=== PATIENT | female | born 1980 ===

== ENCOUNTER 2017-11-10 02:42 | Inpatient (IN) ==
[2017-11-10] MEDS ORDERED: Acetaminophen 325 MG TABLET PO PRN (06:29)
[2017-11-10] MEDS ORDERED: Naloxone 0.4 MG/ML INJ IVP PRN (06:29)
[2017-11-10] MEDS ORDERED: *HR* HYDROcodone/Acet 5/325 mg TABLET PO PRN (06:29)
[2017-11-10] MEDS ORDERED: D5% in Water 1,000 ML IVC PRN (06:35)
[2017-11-10] MEDS ORDERED: *HR* Dextrose 50 % in Water (Syg) 50 ML SYRINGE IVP PRN (06:35)
[2017-11-10] MEDS ORDERED: Dextrose Gel 15 GM/37.5 ML TUBE PO PRN ×2 (06:35)
--- NOTE | 2017-11-10 06:46 | Internal Med History&Physical ---
Date of Encounter: 11/10/17 Time of Encounter: 05:50 Internal Medicine - H&P: HPI Chief complaint: Right index finger pain and swelling Admitted From: Home Plans for Post Hospital Care: Home History of present illness: Ms. Olea is a 37 year old female transferred from [facility] emergency room for right sided index finger swelling and pain. Past medical history is significant for diabetes and hypertension. Patient said that since Monday she started to have right index finger pain and swelling. Patient denies injury. Patient saw PCP and had I and D by PCP. Patient was prescribed Bactrim by mouth by PCP. However, her symptoms is getting worse even on by mouth antibiotics. Patient went to [facility] emergency room for further management. Patient denies fever. Patient has no other symptoms except the finger pain. Patient was given vancomycin in [facility] and transferred to our hospital for further management. Lab results in [facility]: CBC 15.8/13.7/41.3/402, BMP 136/4.5/102/23/12.7/1.0/140. Lactate 1.7, ESR 29, CRP 3.4 Past Med Surg Social Fam HX - Past Medical History Medical history: diabetes, hypertension Psychiatric history: anxiety, depression - Past Surgical History Surgical History: other (Tubal ligation) Additional surgical history: tubal - Social History Smoking Status: Current every day smoker Packs per day: 1 Alcohol use: none Drug use: none - Family History Mother Living Status: Still Living Hx Family Cardiac Disorders: Yes (HTN) Father Living Status: Still Living Hx Family Cancer: Yes (prostate) Hx Family Endocrine Disorder: Yes (DM) Internal Medicine - H&P: Meds Buspirone HCl [Buspar] 10 mg PO TID 11/10/17 [History] Cholecalciferol (D-3) [Vitamin D] 10,000 unit PO Q1W 11/10/17 [History] FLUoxetine HCl [PROzac] 20 mg PO DAILY 11/10/17 [History] Glimepiride [Amaryl] 4 mg PO DAILY 11/10/17 [History] Lisinopril [Zestril] 10 mg PO DAILY 11/10/17 [History] Metformin HCl [Glucophage] 1,000 mg PO BID 11/10/17 [History] 3 Allergy/AdvReac Type Severity Reaction Status Date / Time No Known Allergies Allergy Verified 11/10/17 05:16 All Systems PM: A 10-system review of systems was performed and is negative for pertinent findings except as documented above in the HPI. - Constitutional Vitals: Temp Pulse Resp BP Pulse Ox 97.7 F 84 16 128/84 95 11/10/17 05:02 11/10/17 05:02 11/10/17 05:02 11/10/17 05:02 11/10/17 05:02 General appearance: Present: A&O X 3, no acute distress, answers questions appropriately - Head Head exam: Present: atraumatic, normocephalic - Eye Eye exam: Present: PERRL, conjuntiva pink, sclera anicteric Pupils: Present: PERRL - Neck Neck exam general surgery: Present: supple, trachea midline. Absent: lymphadenopathy - Respiratory Respiratory exam: Present: CTAB. Absent: accessory muscle use, rales, rhonchi, wheezes - Cardiovascular Cardiovascular exam: Present: RRR, +S1, +S2. Absent: diastolic murmur, gallop, rubs, systolic murmur - GI/Abdominal GI/Abdominal exam: Present: normal bowel sounds, soft, no peritoneal signs. Absent: distended, tenderness - Extremities Exam Extremities exam: Present: warm, radial pulses palpable and symmetrical. Absent : calf tenderness, cyanotic, pedal edema Additional comments: Right index finger pain and the swelling with skin redness - Neurological Exam Neurological exam: Present: CN II-XII intact, oriented X3, no focal deficits. Absent: pronater drift, facial droop, speech deficit - Skin Skin exam: Present: dry, intact - Assessment and plan (1) Cellulitis of right index finger Current Visit: Yes Status: Acute Assessment and plan: Place patient on Vanco and Zosyn at this point. Check blood culture. Check MR right hand to rule out osteomyelitis. Consider orthopedic consult if symptoms persist. 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 insulin use: without custodial use Diabetes mellitus complication status: without complication Qualified Code(s): E11.9 - Type 2 diabetes mellitus without complications (3) Hypertension Current Visit: Yes Status: Acute Assessment and plan: Continue home medication list and problem 10 mg by mouth daily Qualifiers: Hypertension type: essential hypertension Qualified Code(s): I10 - Essential (primary) hypertension (4) DVT prophylaxis Current Visit: Yes Status: Acute Assessment and plan: Heparin subcutaneously - Time Spent With Patient Total time spent is greater than 50% in coordination of care (as documented) at patient's floor/unit and/or counseling patient: 40 minutes Greater than 35 minutes
[2017-11-10] MEDS ORDERED: Vancomycin 1 EACH in 0.9 % Sodium Chloride 250 ML IVPB SCH (07:00)
[2017-11-10 07:05] LABS: Basophils # 0.1 K/mcL (0.0-0.2); Basophils % 0.7 %; Eosinophils # 0.3 K/mcL (0.0-0.6); Eosinophils % 2.2 %; Hemoglobin 13.7 g/dL (11.5-15.4); Immature Granulocytes % 0.3 % (0-4); Lymphocytes # 3.1 K/mcL (0.6-4.6); Lymphocytes % 21.1 %; Mean Corpuscular HGB Conc 32.6 g/dL (31.6-35.5); Mean Corpuscular Hemoglobin 28.3 pg (28.0-33.3); Mean Corpuscular Volume 86.8 fL (83.0-100.0); Mean Platelet Volume 10.4 fL (9.4-12.4); Monocytes # 0.6 K/mcL (0.0-1.3); Monocytes % 4.2 %; Neutrophils # 10.3 K/mcL (1.6-8.9); Platelet Count 352 K/mcL (140-400); Red Blood Count 4.84 M/mcL (3.82-4.97); Red Cell Distribution Width 13.3 % (11.5-14.5); Segmented Neutrophils % 71.5 %
[2017-11-10 07:23] LABS: BUN/Creatinine Ratio 15 (6-26); Blood Urea Nitrogen 14 mg/dL (6-20); Carbon Dioxide 21 mEq/L (23-29); Chloride 106 mEq/L (98-107); Glucose 157 mg/dL (70-105); Osmolality,Calculated 286 (280-300); Potassium 4.1 mEq/L (3.5-5.1); Sodium 136 mEq/L (136-145); Vancomycin,Random 11 mcg/mL; eGFR For African Americans > 60 (> 60); eGFR For Non-African Americans > 60 (> 60)
[2017-11-10] MEDS: FLUoxetine 20 MG CAPSULE PO SCH (08:14)
[2017-11-10] MEDS: Insulin LISPRO 300 UNITS/3 ML VIAL SQ SCH ×4 (08:15→20:30)
[2017-11-10] MEDS: Cholecalciferol (D-3) 1,000 UNIT TABLET PO SCH (08:15)
[2017-11-10] MEDS: Piperacillin/Tazobactam 3.375 GM in 0.9 % Sodium Chloride Mini Bag 100 ML IVPB SCH ×3 (10:50→23:54)
[2017-11-10] MEDS: *HR* Heparin 5,000 UNIT/ML VIAL SQ SCH (17:33)
--- NOTE | 2017-11-10 18:36 | Event Note ---
Date of Encounter: 11/10/17 Time of Encounter: 11:00 Patient is seen and evaluated by nocturnalist earlier this morning and also by myself Patient with right index edema/erythema Continue IV antibiotics Orthopedics consulted and appreciate recommendations
[2017-11-11] MEDS: *HR* Heparin 5,000 UNIT/ML VIAL SQ SCH ×2 (05:55→17:05)
[2017-11-11] MEDS: Piperacillin/Tazobactam 3.375 GM in 0.9 % Sodium Chloride Mini Bag 100 ML IVPB SCH ×3 (08:13→23:30)
[2017-11-11] MEDS: FLUoxetine 20 MG CAPSULE PO SCH (08:15)
[2017-11-11] MEDS: Cholecalciferol (D-3) 1,000 UNIT TABLET PO SCH (08:15)
[2017-11-11] MEDS: Insulin LISPRO 300 UNITS/3 ML VIAL SQ SCH ×4 (08:16→20:47)
[2017-11-11 10:22] LABS: Basophils # 0.1 K/mcL (0.0-0.2); Basophils % 0.6 %; Eosinophils # 0.4 K/mcL (0.0-0.6); Eosinophils % 3.3 %; Hematocrit 39.6 % (35.3-44.9); Hemoglobin 12.8 g/dL (11.5-15.4); Immature Granulocytes % 0.4 % (0-4); Lymphocytes # 2.5 K/mcL (0.6-4.6); Lymphocytes % 21.6 %; Mean Corpuscular HGB Conc 32.3 g/dL (31.6-35.5); Mean Corpuscular Hemoglobin 28.3 pg (28.0-33.3); Mean Corpuscular Volume 87.4 fL (83.0-100.0); Mean Platelet Volume 10.3 fL (9.4-12.4); Monocytes # 0.4 K/mcL (0.0-1.3); Monocytes % 3.3 %; Neutrophils # 8.3 K/mcL (1.6-8.9); Platelet Count 350 K/mcL (140-400); Red Blood Count 4.53 M/mcL (3.82-4.97); Red Cell Distribution Width 13.1 % (11.5-14.5); Segmented Neutrophils % 70.8 %
[2017-11-11 10:39] LABS: BUN/Creatinine Ratio 14 (6-26); Blood Urea Nitrogen 12 mg/dL (6-20); Calcium 8.5 mg/dL (8.6-10.3); Carbon Dioxide 22 mEq/L (23-29); Chloride 106 mEq/L (98-107); Glucose 208 mg/dL (70-105); Osmolality,Calculated 280 (280-300); Potassium 4.4 mEq/L (3.5-5.1); Sodium 132 mEq/L (136-145); eGFR For African Americans > 60 (> 60); eGFR For Non-African Americans > 60 (> 60)
--- NOTE | 2017-11-11 11:35 | Orthopedic Consult Note ---
Date of Encounter: 11/11/17 Time of Encounter: 11:33 Assessment and Plan (1) Cellulitis of right index finger Current Visit: Yes Status: Acute Fluctuant abscess noted under the proximal phalanx of the R index fingers. Irrigation and excisional debridement of this area was performed this morning. The area was steriley prepped and draped with betadine. Incision was made over the abscess and the skin edges were sharply excised. Gross purulent material was expressed and deep soft tissue adhesions were broken up. Cultures were taken. The wound was thoroughly irrigated with 1 L NS and packed open. Clean dressing then placed. She tolerated the procedure well. Continue IV antibiotics per hospitalist, follow ctx Daily dressing changes Ok for diet History of Present Illness HPI: Ms. Olea is a 37 year old female with PMHx diabetes and hypertension, admitted with right index finger swelling, redness and pain. Has been going on for 5 days, denies trauma. PCP attempted drainage and gave her PO Bactrim, she did not get improvement. Patient presented to [facility] ED yesterday and was started on Vancomycin and transferred here. Denies fevers, chills or other injury. Past Med Surg Social Fam HX - Past Medical History Medical history: diabetes, hypertension Psychiatric history: anxiety, depression - Past Surgical History Surgical History: other (Tubal ligation) Additional surgical history: tubal - Social History Smoking Status: Current every day smoker Packs per day: 1 Alcohol use: none Drug use: none - Family History Mother Living Status: Still Living Hx Family Cardiac Disorders: Yes (HTN) Father Living Status: Still Living Hx Family Cancer: Yes (prostate) Hx Family Endocrine Disorder: Yes (DM) Medications and Allergies Buspirone HCl [Buspar] 10 mg PO TID 11/10/17 [History] Cholecalciferol (D-3) [Vitamin D] 10,000 unit PO Q1W 11/10/17 [History] FLUoxetine HCl [PROzac] 20 mg PO DAILY 11/10/17 [History] Gabapentin [Neurontin] 300 mg PO DAILY 11/10/17 [History] Glimepiride [Amaryl] 4 mg PO DAILY 11/10/17 [History] Lisinopril [Zestril] 10 mg PO DAILY 11/10/17 [History] Metformin HCl [Glucophage] 1,000 mg PO BID 11/10/17 [History] Sulfamethoxazole/Trimeth DS [Bactrim DS] 1 each PO BID 11/10/17 [History] 3 Allergy/AdvReac Type Severity Reaction Status Date / Time No Known Allergies Allergy Verified 11/10/17 05:16 All Systems Reviewed: The remainder of the systems were reviewed and are negative except as noted in HPI Physical Exam - Constitutional Vitals: Temp Pulse Resp BP Pulse Ox 98.8 F 87 18 88/60 96 11/11/17 10:36 11/11/17 10:36 11/11/17 10:36 11/11/17 10:36 11/11/17 10:36 Exam: Consult Exam: Constitutional -Vitals reviewed -The patient is well developed and well nourished. -Mood is pleasant. -The patient is well groomed. Psychiatric -The patient is fully alert and oriented x 3. Respiratory: -Respiratory effort normal Abdomen: -Soft abdomen -Non tender -Non distended: Left upper extremity: -No deformities. The overlying skin is intact. No obvious signs of acute trauma. -No tenderness to palpation throughout. -No significant pain with passive motion of the shoulder, elbow, wrist, and fingers within the limits of the bed. -Able to make an "OK" sign, cross the index and long fingers, and extend the thumb. -Sensation grossly intact to light touch throughout the median, radial, and ulnar distributions. -Radial pulse is present; Fingers have good capillary refill. Right upper extremity: -Erythema and swelling with fluctuant area over radial aspect of proximal phalanx of index finger. -No significant pain with passive motion of the shoulder, elbow, wrist, and fingers within the limits of the bed. -Able to make an "OK" sign, cross the index and long fingers, and extend the thumb. -Sensation grossly intact to light touch throughout the median, radial, and ulnar distributions. -Radial pulse is present; Fingers have good capillary refill. Left lower extremity: -No deformities. The overlying skin is intact. No obvious signs of acute trauma. -No tenderness to palpation throughout. -No pain with passive motion of the hip, knee, ankle, and toes within the limits of the bed. -No pain with axial loading of the thigh. -Able to dorsiflex and plantarflex the ankle and toes. -Sensation is grossly intact to light touch throughout the sural, saphenous, superficial peroneal, and deep peroneal distributions. -Toes have good capillary refill. Right lower extremity: -No deformities. The overlying skin is intact. No obvious signs of acute trauma. -No tenderness to palpation throughout. -No pain with passive motion of the hip, knee, ankle, and toes within the limits of the bed. -No pain with axial loading of the thigh. -Able to dorsiflex and plantarflex the ankle and toes. -Sensation is grossly intact to light touch throughout the sural, saphenous, superficial peroneal, and deep peroneal distributions. -Toes have good capillary refill. Results - Labs Result Diagrams: 11/11/17 10:06 11/11/17 10:06 Labs: Abnormal lab results WBC 11.6 K/mcL (4.3-11.1) H 11/11/17 10:06 Sodium 132 mEq/L (136-145) L 11/11/17 10:06 Carbon Dioxide 22 mEq/L (23-29) L 11/11/17 10:06 Glucose 208 mg/dL (70-105) H 11/11/17 10:06 POC Glucose 164 mg/dL (70-99) H 11/10/17 19:45 Calcium 8.5 mg/dL (8.6-10.3) L 11/11/17 10:06 H & H 11/11/17 Range/Units 10:06 Hgb 12.8 (11.5-15.4) g/dL Hct 39.6 (35.3-44.9) % All other labs normal. - Diagnostic results Wrist/Hand MRI: report reviewed, image reviewed (Subcutaneous edema over R index finger. No bony or joint destruction or evidence of osteomyelitis) Consult Discharge Plan - Plan Referrals: Claudia Lozano [Primary Care Provider] -
--- NOTE | 2017-11-11 17:03 | Internal Med Progress Note ---
Date of Encounter: 11/11/17 Time of Encounter: 11:00 - Assessment and plan (1) Cellulitis of right index finger Current Visit: Yes Status: Acute Assessment and plan: Patient had right index finger incised and drained by orthopedics this morning; cultures pending Will continue IV vancomycin and Zosyn and await culture results (2) Diabetes mellitus Current Visit: Yes Status: Acute Assessment and plan: Coverage with sliding scale insulin coverage Qualifiers: Diabetes mellitus type: type 2 Diabetes mellitus director long term care insulin use: without halfway use Diabetes mellitus complication status: without complication Qualified Code(s): E11.9 - Type 2 diabetes mellitus without complications (3) Hypertension Current Visit: Yes Status: Acute Assessment and plan: Continue LELA inhibitor Qualifiers: Hypertension type: essential hypertension Qualified Code(s): I10 - Essential (primary) hypertension (4) DVT prophylaxis Current Visit: Yes Status: Acute Assessment and plan: Heparin subcutaneously - Time Spent With Patient Total time spent is greater than 50% in coordination of care (as documented) at patient's floor/unit and/or counseling patient: - Subjective Interval history: Patient has not incision and drainage of right index finger by orthopedics earlier this morning - Constitutional Vitals: Temp Pulse Resp BP Pulse Ox 97.6 F 87 18 106/71 99 11/11/17 15:48 11/11/17 15:48 11/11/17 15:48 11/11/17 15:48 11/11/17 15:48 General appearance: Present: A&O X 3, no acute distress, answers questions appropriately - Respiratory Respiratory exam: Present: CTAB. Absent: accessory muscle use, rales, rhonchi, wheezes - Cardiovascular Cardiovascular exam: Present: RRR, +S1, +S2. Absent: diastolic murmur, gallop, rubs, systolic murmur Internal Medicine: Result - Labs CBC & Chem 7: 11/11/17 10:06 11/11/17 10:06 Labs: Short CBC 11/11/17 Range/Units 10:06 WBC 11.6 H (4.3-11.1) K/mcL Hgb 12.8 (11.5-15.4) g/dL Hct 39.6 (35.3-44.9) % Plt Count 350 (140-400) K/mcL Neutrophils # 8.3 (1.6-8.9) K/mcL BMP 11/11/17 10:06 Sodium 132 L Potassium 4.4 Chloride 106 Carbon Dioxide 22 L BUN 12 Creatinine 0.85 Glucose 208 H Calcium 8.5 L - Impressions Impressions Hand MRI 11/10/17 06:36 IMPRESSION: Nonspecific subcutaneous edema along the dorsal aspect of the hand and digits, particularly the second digit. No evidence of discrete fluid collection to suggest abscess. Findings may represent cellulitis. No evidence of acute bone or joint abnormality. D/ / 11/10/2017 11:00:01 Tripp Bashir MD / osmel Interpreting Provider: Tripp Bashir MD Consult Discharge Plan - Plan Referrals: Claudia Lozano [Primary Care Provider] -
[2017-11-12] MEDS: *HR* Heparin 5,000 UNIT/ML VIAL SQ SCH ×2 (04:47→16:48)
[2017-11-12] MEDS: FLUoxetine 20 MG CAPSULE PO SCH (07:50)
[2017-11-12] MEDS: Cholecalciferol (D-3) 1,000 UNIT TABLET PO SCH (07:50)
[2017-11-12] MEDS: Piperacillin/Tazobactam 3.375 GM in 0.9 % Sodium Chloride Mini Bag 100 ML IVPB SCH ×2 (07:51→16:48)
[2017-11-12] MEDS: Insulin LISPRO 300 UNITS/3 ML VIAL SQ SCH ×4 (07:51→21:02)
--- NOTE | 2017-11-12 08:59 | Orthopedics Progress Note ---
Date of Encounter: 11/12/17 Time of Encounter: 08:57 - Assessment and Plan (1) Cellulitis of right index finger Current Visit: Yes Status: Acute Subjective Interval history: R index finger feeling better. Denies fevers or chills. Pain improving AFVSS GEN: NAD, AAOx3 RUE: Incision open and draining Erythema present but decreasing ROM of index finger improving, no pain along flexor sheath or with motion of IP joints 37 yo F s/p R index finger bedside I&D Continue antibiotics per hospitalist Ok for diet, no plans for further surgery Daily dressing changes Objective Vital signs: Vital Signs Temp Pulse Resp BP Pulse Ox 11/12/17 06:21 98.4 F 84 18 130/52 98 11/12/17 03:36 98.8 F 80 14 98/62 96 11/11/17 22:45 98.2 F 74 16 111/71 97 11/11/17 18:48 98.4 F 80 14 107/72 97 11/11/17 15:48 97.6 F 87 18 106/71 99 11/11/17 10:36 98.8 F 87 18 88/60 96 Intake and Output 11/11/17 11/12/17 11/12/17 23:59 07:59 15:59 Intake Total 690 / 690 150 / 150 120 / 120 Balance 690 / 690 150 / 150 120 / 120 Intake: IV Fluids 350 / 350 100 / 100 Zosyn 3.375 GM In 0.9 % Sodium 100 / 100 100 / 100 Chloride (Mini-Bag +) 100 ML @ 25 mls/hr IVPB Q8HR GABY Rx#: [id number] Vancocin 1,500 MG In 0.9 % 250 / 250 Sodium Chloride 250 ML @ 166.67 mls/hr IVPB Q12H GABY Rx#: [id number] Oral 340 / 340 50 / 50 120 / 120 Other: Meal Dinner Breakfast Percent of Meal Consumed 100% 100% # Voids 1 1 Weight 126.7 kg Blood Glucose* 211 164 - Labs CBC & BMP: 11/11/17 10:06 11/11/17 10:06 Labs: Abnormal lab results WBC 11.6 K/mcL (4.3-11.1) H 11/11/17 10:06 Sodium 132 mEq/L (136-145) L 11/11/17 10:06 Carbon Dioxide 22 mEq/L (23-29) L 11/11/17 10:06 Glucose 208 mg/dL (70-105) H 11/11/17 10:06 POC Glucose 211 mg/dL (70-99) H 11/11/17 20:37 Calcium 8.5 mg/dL (8.6-10.3) L 11/11/17 10:06 Vancomycin Trough 12 mcg/mL (5-10) H 11/11/17 18:59 Consult Discharge Plan - Plan Referrals: Claudia Lozano [Primary Care Provider] -
[2017-11-12 10:25] LABS: Basophils # 0.1 K/mcL (0.0-0.2); Basophils % 0.6 %; Eosinophils # 0.4 K/mcL (0.0-0.6); Eosinophils % 3.3 %; Hematocrit 39.5 % (35.3-44.9); Hemoglobin 13.3 g/dL (11.5-15.4); Immature Granulocytes % 0.2 % (0-4); Lymphocytes % 23.3 %; Mean Corpuscular HGB Conc 33.7 g/dL (31.6-35.5); Mean Corpuscular Hemoglobin 28.7 pg (28.0-33.3); Mean Corpuscular Volume 85.1 fL (83.0-100.0); Mean Platelet Volume 10.7 fL (9.4-12.4); Monocytes # 0.4 K/mcL (0.0-1.3); Monocytes % 3.4 %; Neutrophils # 8.9 K/mcL (1.6-8.9); Platelet Count 358 K/mcL (140-400); Red Blood Count 4.64 M/mcL (3.82-4.97); Red Cell Distribution Width 13.1 % (11.5-14.5); Segmented Neutrophils % 69.2 %
[2017-11-12 10:44] LABS: BUN/Creatinine Ratio 13 (6-26); Blood Urea Nitrogen 12 mg/dL (6-20); Calcium 8.9 mg/dL (8.6-10.3); Carbon Dioxide 22 mEq/L (23-29); Chloride 106 mEq/L (98-107); Glucose 233 mg/dL (70-105); Osmolality,Calculated 285 (280-300); Sodium 134 mEq/L (136-145); eGFR For African Americans > 60 (> 60); eGFR For Non-African Americans > 60 (> 60)
[2017-11-12] MEDS ORDERED: Aminoglycoside Consult 1 EACH MC ONE (14:44)
--- NOTE | 2017-11-12 16:01 | Internal Med Progress Note ---
Date of Encounter: 11/12/17 Time of Encounter: 11:00 - Assessment and plan (1) Cellulitis of right index finger Current Visit: Yes Status: Acute Assessment and plan: Patient had right index finger incised and drained by orthopedics on 11/11/17; cultures pending Will continue IV vancomycin and Zosyn and await culture results Orthopedics following and appreciate any additional recommendations (2) Diabetes mellitus Current Visit: Yes Status: Acute Assessment and plan: Coverage with sliding scale insulin coverage Qualifiers: Diabetes mellitus type: type 2 Diabetes mellitus salvage determiner insulin use: without salvage determiner use Diabetes mellitus complication status: without complication Qualified Code(s): E11.9 - Type 2 diabetes mellitus without complications (3) Hypertension Current Visit: Yes Status: Acute Assessment and plan: Continue LELA inhibitor Qualifiers: Hypertension type: essential hypertension Qualified Code(s): I10 - Essential (primary) hypertension (4) DVT prophylaxis Current Visit: Yes Status: Acute Assessment and plan: Heparin subcutaneously - Time Spent With Patient Total time spent is greater than 50% in coordination of care (as documented) at patient's floor/unit and/or counseling patient: - Subjective Interval history: Status post incision and drainage of right index finger on 11/11/17 by orthopedics Patient reports that index finger feels much better this morning and is now able to flex and extend it - Constitutional Vitals: Temp Pulse Resp BP Pulse Ox 97.8 F 75 18 98/59 95 11/12/17 14:56 11/12/17 14:56 11/12/17 14:56 11/12/17 14:56 11/12/17 14:56 General appearance: Present: A&O X 3, no acute distress, answers questions appropriately - Respiratory Respiratory exam: Present: CTAB. Absent: accessory muscle use, rales, rhonchi, wheezes - Cardiovascular Cardiovascular exam: Present: RRR, +S1, +S2. Absent: diastolic murmur, gallop, rubs, systolic murmur - Extremities Exam Extremities exam: Present: full ROM (Patient is able to extend and flex right index finger) Internal Medicine: Result - Labs CBC & Chem 7: 11/12/17 09:52 11/12/17 09:52 Labs: Short CBC 11/12/17 Range/Units 09:52 WBC 12.8 H (4.3-11.1) K/mcL Hgb 13.3 (11.5-15.4) g/dL Hct 39.5 (35.3-44.9) % Plt Count 358 (140-400) K/mcL Neutrophils # 8.9 (1.6-8.9) K/mcL BMP 11/12/17 09:52 Sodium 134 L Potassium 4.0 Chloride 106 Carbon Dioxide 22 L BUN 12 Creatinine 0.89 Glucose 233 H Calcium 8.9 Consult Discharge Plan - Plan Referrals: Claudia Lozano [Primary Care Provider] -
[2017-11-13] MEDS: Piperacillin/Tazobactam 3.375 GM in 0.9 % Sodium Chloride Mini Bag 100 ML IVPB SCH ×2 (00:10→08:11)
[2017-11-13] MEDS: *HR* Heparin 5,000 UNIT/ML VIAL SQ SCH (05:30)
[2017-11-13] MEDS: Insulin LISPRO 300 UNITS/3 ML VIAL SQ SCH ×2 (08:10→12:11)
[2017-11-13] MEDS: FLUoxetine 20 MG CAPSULE PO SCH (08:10)
[2017-11-13] MEDS: Cholecalciferol (D-3) 1,000 UNIT TABLET PO SCH (08:10)
--- NOTE | 2017-11-13 08:11 | Orthopedics Progress Note ---
Date of Encounter: 11/13/17 Time of Encounter: 08:10 - Assessment and Plan (1) Cellulitis of right index finger Current Visit: Yes Status: Acute Subjective Interval history: R index finger continues to improve. Denies fevers or chills. AFVSS GEN: NAD, AAOx3 RUE: Erythema diminished, no fluctuance No pain with ROM index finger 37 yo F s/p R index finger bedside I&D Continue antibiotics per hospitalist No plans for further surgery, will s/o Objective Vital signs: Vital Signs Temp Pulse Resp BP Pulse Ox 11/13/17 07:53 97.6 F 80 17 112/78 94 11/12/17 23:37 98.2 F 73 14 104/68 96 11/12/17 19:52 98.2 F 77 14 106/69 97 11/12/17 14:56 97.8 F 75 18 98/59 95 11/12/17 10:48 97.9 F 93 18 96/63 96 Intake and Output 11/12/17 11/13/17 11/13/17 23:59 07:59 15:59 Intake Total 880 / 880 350 / 350 Output Total 900 / 900 Balance -20 / -20 350 / 350 Intake: IV Fluids 100 / 100 350 / 350 Zosyn 3.375 GM In 0.9 % Sodium 100 / 100 100 / 100 Chloride (Mini-Bag +) 100 ML @ 25 mls/hr IVPB Q8HR GABY Rx#: [id number] Vancocin 1,500 MG In 0.9 % 250 / 250 Sodium Chloride 250 ML @ 166.67 mls/hr IVPB Q12H GABY Rx#: [id number] Oral 780 / 780 Output: Urine 900 / 900 Other: Meal Dinner Percent of Meal Consumed 100% Blood Glucose* 191 184 - Labs CBC & BMP: 11/12/17 09:52 11/12/17 09:52 Labs: Abnormal lab results WBC 12.8 K/mcL (4.3-11.1) H 11/12/17 09:52 Sodium 134 mEq/L (136-145) L 11/12/17 09:52 Carbon Dioxide 22 mEq/L (23-29) L 11/12/17 09:52 Glucose 233 mg/dL (70-105) H 11/12/17 09:52 POC Glucose 191 mg/dL (70-99) H 11/12/17 19:58 Vancomycin Trough 12 mcg/mL (5-10) H 11/11/17 18:59 Consult Discharge Plan - Plan Referrals: Claudia Lozano [Primary Care Provider] -
[2017-11-13 11:13] LABS: Basophils # 0.1 K/mcL (0.0-0.2); Basophils % 0.7 %; Eosinophils # 0.2 K/mcL (0.0-0.6); Eosinophils % 1.7 %; Hematocrit 38.2 % (35.3-44.9); Hemoglobin 12.8 g/dL (11.5-15.4); Immature Granulocytes % 0.4 % (0-4); Lymphocytes # 2.5 K/mcL (0.6-4.6); Lymphocytes % 20.2 %; Mean Corpuscular HGB Conc 33.5 g/dL (31.6-35.5); Mean Corpuscular Hemoglobin 28.5 pg (28.0-33.3); Mean Corpuscular Volume 85.1 fL (83.0-100.0); Mean Platelet Volume 10.1 fL (9.4-12.4); Monocytes # 0.5 K/mcL (0.0-1.3); Neutrophils # 8.9 K/mcL (1.6-8.9); Platelet Count 330 K/mcL (140-400); Red Blood Count 4.49 M/mcL (3.82-4.97); Red Cell Distribution Width 12.9 % (11.5-14.5)
[2017-11-13 11:28] LABS: BUN/Creatinine Ratio 12 (6-26); Blood Urea Nitrogen 11 mg/dL (6-20); Calcium 9.1 mg/dL (8.6-10.3); Carbon Dioxide 25 mEq/L (23-29); Chloride 106 mEq/L (98-107); Glucose 201 mg/dL (70-105); Osmolality,Calculated 287 (280-300); Potassium 4.2 mEq/L (3.5-5.1); Sodium 136 mEq/L (136-145); eGFR For African Americans > 60 (> 60); eGFR For Non-African Americans > 60 (> 60)
[2017-11-13 11:32] VITALS: BP 123/77
--- NOTE | 2017-11-13 11:54 | Discharge Summary ---
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 insulin use: without truck terminal manager use Diabetes mellitus complication status: without complication Qualified Code(s): E11.9 - Type 2 diabetes mellitus without complications (3) Hypertension Priority: Secondary Status: Acute Qualifiers: Hypertension type: essential hypertension Qualified Code(s): I10 - Essential (primary) hypertension Hospital course: Patient is a 37-year-old female with past medical history significant for hypertension, diabetes and mood disorder who presented from [facility] emergency room for right sided index finger swelling and pain. Patient saw PCP and had I&D by PCP. Patient was prescribed Bactrim by mouth by PCP. However, her symptoms did not improve. Patient went to [facility] emergency room for further management. Patient denies fever. Patient has no other symptoms except the finger pain. Patient was given vancomycin in [facility] and transferred to our hospital for further management. During patients hospital stay orthopedics was consulted with recommendations for this visit and drainage which was done in addition to antibiotic management with IV vancomycin and IV Zosyn. Patient will be discharged to complete a 10 day course of Bactrim. - Time Spent with Patient Total time spent providing and/or coordinating discharge services: Less than 30 minutes - Discharge Medications Prescriptions: HYDROcodone/Acet 5/325 mg [[place] 5-325 mg] 1 tab PO Q12HR PRN 5 Days #10 tablet PRN Reason: Moderate Pain Sulfamethoxazole/Trimeth DS [Bactrim Ds] 1 each PO BID #6 tablet Home Medications: Buspirone HCl [Buspar] 10 mg PO TID 11/10/17 [History] Cholecalciferol (D-3) [Vitamin D] 10,000 unit PO Q1W 11/10/17 [History] FLUoxetine HCl [Prozac] 20 mg PO DAILY 11/10/17 [History] Gabapentin [Neurontin] 300 mg PO DAILY 11/10/17 [History] Glimepiride [Amaryl] 4 mg PO DAILY 11/10/17 [History] Lisinopril [Zestril] 10 mg PO DAILY 11/10/17 [History] Metformin HCl [Glucophage] 1,000 mg PO BID 11/10/17 [History] HYDROcodone/Acet 5/325 mg [[place] 5-325 mg] 1 tab PO Q12HR PRN 5 Days #10 tablet 11/13/17 [Rx] Sulfamethoxazole/Trimeth DS [Bactrim Ds] 1 each PO BID #6 tablet 11/13/17 [Rx] Allergies/Adverse Reactions: 3 Allergy/AdvReac Type Severity Reaction Status Date / Time No Known Allergies Allergy Verified 11/10/17 05:16 Date of admission: 11/10/17 06:29 Primary care physician: Claudia Lozano Consults: 11/10/17 18:25 Consult to Orthopedic Surgery [CONS] Routine Consulting Provider: Orthoped[facility] Reason for Consult: Right index finger abscess Call Completed: No - Constitutional Vitals: Temp Pulse Resp BP Pulse Ox 98.4 F 73 18 123/77 96 11/13/17 11:30 11/13/17 11:30 11/13/17 11:30 11/13/17 11:30 11/13/17 11:30 General appearance: Present: A&O X 3, no acute distress, answers questions appropriately - Skin Skin exam: Present: normal color - Patient Status Disposition: Home, Self-Care - Discharge Instructions Instructions: Sulfamethoxazole/Trimethoprim (By mouth), Hydrocodone/ Acetaminophen (By mouth), Cellulitis (DC) Follow Up With: Diana Browning CNP [Advanced Practice Nurse] - 11/20/17 2:00 pm
== END 2017-11-13 14:45 | disposition home or self-care (01) | DRG 361 ==
LOC: 3NENU → SUATTDRO 06:29 → 2ANU 11-13 09:24
PROVIDERS: ADMIT Internal Medicine; ATTEND Hospitalist